=== PATIENT | female | born 1980 | race Caucasian/White ===

== ENCOUNTER 2017-01-05 11:05 | Emergency (ER) | payer OTHER ==
--- NOTE | 2017-01-05 12:38 | XR ---
EXAMINATION TYPE: XR tibia fibula RT DATE OF EXAM: 01/05/2017 CLINICAL HISTORY: Pain. TECHNIQUE: Two views of the right leg are obtained. COMPARISON: None. FINDINGS: Frontal view is suboptimal as is more in oblique projection distally. There is no acute fr acture or dislocation seen in the right tibia or fibula. The right knee joint appears within normal limits. Right ankle joint is suboptimal in evaluation. Mild subcutaneous edema is seen most pronounce d distally. IMPRESSION: There is no acute fracture or dislocation seen in the right tibia or fibula.
--- NOTE | 2017-01-05 12:44 | XR ---
Right foot HISTORY: Pain 3 views of the right foot Bone mineralization and joint spaces are maintained. There is no fracture or dislocation. Soft tissue swelling is noted. Suspect the patient may be rotated. Difficult to exclude malalignment. IMPRESSION: Soft tissue swelling, additional findings above. Follow-up as indicated.
--- NOTE | 2017-01-05 13:20 | ED ---
General Adult HPI - General Chief complaint: Extremity Injury, Lower Stated complaint: RT FOOT SWELLING, Hx Dx CELLULITIS Time Seen by Provider: 01/05/17 11:51 Source: patient Mode of arrival: ambulatory Limitations: altered mental status, physical limitation - History of Present Illness Initial comments: This 36-year-old white female presents with mother with the complaint of swelling to the right lower extremity. She apparently was diagnosed with cellulitis approximately 8 days ago. She had increased redness at that time. She was placed on Bactrim but apparently developed a rash and stopped this after 2 days. She's been on clindamycin for the past 4 days or so. The mother relates that it causes her a fair amount of nausea. An antiemetic apparently was prescribed but she still is had decreased intake with this medication. Mother is requesting a change in antibiotics. The redness has significantly resolved. There is no history of injuries. No other complaints or modifying factors. No fevers or chills. - Related Data Home Medications Medication Instructions Recorded Confirmed Cetirizine HCl [Cetirizine HCl] 10 mg PO QAM PRN 01/05/17 01/05/17 Clindamycin HCl 300 mg PO Q12HR 01/05/17 01/05/17 FLUoxetine HCL [PROzac] 20 mg PO DAILY 01/05/17 01/05/17 Fluticasone Nasal [place] [Flonase 2 spr EA NOSTRIL DAILY 01/05/17 01/05/17 Nasal [place]] Imipramine [Tofranil] 10 mg PO HS 01/05/17 01/05/17 Metoprolol Succinate (ER) [Toprol 50 mg PO QAM 01/05/17 01/05/17 XL] Nitrofurantoin Macrocrystal 100 mg PO BID 01/05/17 01/05/17 [Macrodantin] Ondansetron HCl [Ondansetron HCl] 8 mg PO Q8H PRN 01/05/17 01/05/17 Oxybutynin Chloride [Ditropan] 5 mg PO QID 01/05/17 01/05/17 Verapamil HCl [Verapamil ER] 120 mg PO QAM 01/05/17 01/05/17 Previous Rx's Medication Instructions Recorded Doxycycline Hyclate [Vibramycin] 100 mg PO BID #10 cap 01/05/17 Allergies Allergy/AdvReac Type Severity Reaction Status Date / Time clindamycin Allergy Rash/Hives Verified 01/05/17 12:09 Latex, Natural Rubber Allergy Itching Verified 01/05/17 12:09 Review of Systems ROS Statement: Those systems with pertinent positive or pertinent negative responses have been documented in the HPI. ROS Other: All systems not noted in ROS Statement are negative. Past Medical History Past Medical History: Renal Disease Additional Past Medical History / Comment(s): hydrocephalis, enlarged bladder, spinabifida, constipation, kidney stones History of Any Multi-Drug Resistant Organisms: None Reported Past Surgical History: Adenoidectomy, Hernia Repair, Tonsillectomy Additional Past Surgical History / Comment(s): bilateral ankle, foot, bilateral eyes Past Psychological History: Depression Smoking Status: Never smoker Past Alcohol Use History: None Reported Past Drug Use History: None Reported General Exam - General Exam Comments Initial Comments: GENERAL: The patient is well nourished and well hydrated. VITAL SIGNS: Heart rate, blood pressure, respiratory rate reviewed as recorded in nurse's notes. EYES: Pupils are round and reactive. Extraocular movements are intact. No conjunctival / lid redness or swelling. ENT: No external evidence of injury, swelling, or ecchymosis. Airway is patent. Throat is clear. NECK: Nontender. No swelling or evidence of injury. No subcutaneous emphysema. Trachea is midline. No thyroid mass. HEART: Regular rate and rhythm. Good peripheral pulses. LUNGS/CHEST: Breath sounds clear and equal bilaterally. No rales, rhonchi, or wheezes. No ecchymosis, subcutaneous emphysema, or tenderness. ABDOMEN: Abdomen soft without tenderness. No palpable masses or organomegaly. No peritoneal signs. No abdominal wall swelling or ecchymosis. EXTREMITIES: No extremity tenderness. There may be some scant tenderness noted to the lateral aspect of the right foot. NEUROLOGIC: Patient has decreased sensation to lower extremities consistent with chronic disease. Cranial nerve exam reveals face is symmetrical, tongue is midline, speech is clear. SKIN: No abrasions or ecchymosis is noted. No induration or masses noted. No associated erythema her current evidence of cellulitis. There is some ecchymosis to the toes which apparently is chronic for her. PSYCHIATRIC: Alert and in no distress. Limitations: altered mental status, physical limitation Course Vital Signs 01/05/17 11:13 Temperature 98.7 F Pulse Rate 94 Respiratory 18 Rate Blood Pressure 143/95 O2 Sat by Pulse 98 Oximetry Medical Decision Making - Medical Decision Making The patient was seen and examined. An x-ray was taken of the right foot and the right tibia and fibula no fracture is identified per radiology. Mother is requesting a change in antibiotic due to the side effects of the clindamycin. She will be switched to doxycycline. It appears that the cellulitis is healing well. The mild swelling may be sequelae related to resolving cellulitis. It is felt as though she is stable for discharge and leaves no distress. Disposition Clinical Impression: Foot swelling Disposition: HOME SELF-CARE Condition: Good Instructions: Cellulitis (ED) Additional Instructions: Please stop the clindamycin. Prescriptions: Doxycycline Hyclate [Vibramycin] 100 mg PO BID #10 cap Referrals: Nelson Whiteside MD [Primary Care Provider] - 01/09/17 Time of Disposition: 13:19
[2017-01-05 13:29] VITALS: BP 142/76; PULSE 88; RESP 16; TEMP 98.4
== END 2017-01-05 13:29 | disposition home or self-care (01) ==
LOC: EC 11:05
DX: M79.89 Other specified soft tissue disorders (principal); R58 Hemorrhage, not elsewhere classified; R41.82 Altered mental status, unspecified; F32.9 Major depressive disorder, single episode, unspecified; Z79.51 Long term (current) use of inhaled steroids; Z79.899 Other long term (current) drug therapy; Z88.1 Allergy status to other antibiotic agents; Z91.040 Latex allergy status; Z98.890 Other specified postprocedural states
CPT/HCPCS: 99283

== ENCOUNTER → 2019-06-15 | Outpatient (CLI) | payer OTHER ==
--- NOTE | 2019-06-16 22:02 | CT ---
EXAMINATION TYPE: CT abdomen pelvis wo con DATE OF EXAM: 06/15/2019 COMPARISON: 06/07/2018 HISTORY: 39-year-old female History of stones. Left renal stone. CT DLP: 647.3 mGycm. Automated exposure control for dose reduction was used. TECHNIQUE: Contiguous axial scanning of the abdomen and pelvis without IV contrast. Coronal and sagit tania reconstructions performed. FINDINGS: Heart normal size without pericardial effusion. Volume loss and atelectasis at the left base secondary to a large hiatal hernia containing two thirds of the stomach in the left lower chest. The hernia also contains the distal third transverse colon a nd splenic flexure. The colon is pinched off as it enters and leaves the hernia. Colon within the her ema sac is distended up to 6.7 cm wide and right side of the colon proximal to the hernia is distende d up to 9.1 cm with large stool burden. Dual DELINEATOR shunt catheters are present entering the pelvis. No dilated small bowel, free fluid, or free air. No mesenteric or retroperitoneal lymphadenopathy. Noncontrast appearance of the liver, adrenal glands, right kidney, spleen, and pancreas show no gross abnormality by noncontrast CT. Multiple 5 mm nonobstructive calculi are present in the left kidney. There is prominent lobulation al ekaterina the lower pole of the left kidney, referred to coronal image 66. The lobulation measures 3.2 cm a nd is stable from 06/07/2018 compatible with a lobulation rather than mass. Bladder is distended and has a prominent urachal remnant which seems to be characterized by a sinus t ract extending to the umbilicus. Air tracks along the sinus tract and at the anterior dome of the enrrique dder. In addition, there is a prominent 7.2 cm craniocaudal by 3.8 cm wide by 4.2 cm AP diverticulum along the left bladder dome, refer to coronal image 53 and axial image 114. Uterus anteverted. Neither ovary clearly delineated from adjacent bowel loops. Bilateral hip dysplasia and marked S-shaped scoliotic curvature. IMPRESSION: 1. Large hiatal hernia containing two thirds of the stomach and also the distal third transverse col on and splenic flexure. The colon appears pinched off as it enters and leaves the hernia sac and colo n proximally is distended up to 9.1 cm with a large amount of stool. A relative partial colonic obstr uction is not excluded. 2. Distended bladder with what appears to be a urachal remnant characterized by a sinus tract extend ing to the umbilicus. Air along the sinus tract and within the bladder lumen. 3. Additional 7.2 x 4.2 cm bladder wall diverticulum along the left bladder dome also contains some air. 4. A couple 5 mm nonobstructive left renal calculi. 5. S-shaped scoliosis, bilateral dysplastic hips, and double DELINEATOR shunt catheters entering the pelvis.
== END | disposition home or self-care (01) ==
LOC: RADCTMAIN 12:51
PROVIDERS: ATTEND Physician Assistant Medical
DX: N20.0 Calculus of kidney (principal); K44.9 Diaphragmatic hernia without obstruction or gangrene
CPT/HCPCS: 74176

== ENCOUNTER → 2022-03-23 | Outpatient (CLI) | payer MEDICARE, OTHER ==
[2022-03-23 15:15] LABS: Basophils # (A) 0.04 X 10*3/uL (0.00-0.10); Basophils % (A) 0.7 %; Eosinophils # (A) 0.26 X 10*3/uL (0.04-0.35); Eosinophils % (A) 4.7 %; HCT 43.4 % (37.2-46.3); HGB 13.7 g/dL (12.0-15.0); Immature Grans, Automated 0.4 %; Lymphocytes % (A) 21.7 %; MCH 29.5 pg (27.0-32.0); MCHC 31.6 g/dL (32.0-37.0); MCV 93.3 fL (80.0-97.0); Mean Platelet Volume 10.2 fL (9.5-12.2); Monocytes # (A) 0.32 X 10*3/uL (0.20-1.00); Monocytes % (A) 5.8 %; NRBC Per 100 WBC 0 /100 WBCS (0.0-0.0); Neutrophils # (A) 3.68 X 10*3/uL (1.80-7.70); Neutrophils % (A) 66.7 %; Platelet Count 371 X 10*3/uL (140-440); RBC 4.65 X 10*6/uL (4.10-5.20); RDW 13.6 % (11.5-14.5); WBC 5.52 X 10*3/uL (4.50-10.00)
[2022-03-23 16:04] LABS: ALT 16 U/L (8-44); AST 20 U/L (13-35); African American GFR (CKD) 129.4 (60.0-200.0); Albumin 4.2 g/dL (3.8-4.9); Albumin/Globulin Ratio 1.45 (1.60-3.17); Alkaline Phosphatase 117 U/L (41-126); Blood Urea Nitrogen 18.9 mg/dL (9.0-27.0); Calcium 9.3 mg/dL (8.7-10.3); Carbon Dioxide 19.8 mmol/L (20.0-27.5); Chloride 108 mmol/L (96-109); Chol/HDL Ratio 4.78 Ratio; Globulin 2.9 g/dL (1.6-3.3); Glucose 78 mg/dL (70-110); LDL Cholesterol,Calculated 185.1 mg/dL (0.0-131.0); Non-African American GFR(CKD) 111.6 (60.0-200.0); Sodium 137 mmol/L (135-145); Total Protein 7.1 g/dL (6.2-8.2); VLDL Calculation 19.66 mg/dL (5.00-40.00)
== END | disposition home or self-care (01) ==
LOC: LABWHC1 10:28
PROVIDERS: ATTEND Pediatrics
DX: Z13.29 Encounter for screening for other suspected endocrine disorder (principal); I10 Essential (primary) hypertension; E23.0 Hypopituitarism; L65.9 Nonscarring hair loss, unspecified
CPT/HCPCS: 36415; 80053; 80061; 84443; 85025

== ENCOUNTER → 2024-10-31 | Outpatient (CLI) | payer MEDICARE, OTHER ==
--- NOTE | 2024-10-31 13:59 | CT ---
EXAMINATION TYPE: CT abdomen pelvis wo con DATE OF EXAM: 10/31/2024 COMPARISON: Prior CT 2019 CLINICAL INDICATION: Female, 44 years old with history of N20.0 calculus, RENAL CALCULUS, TECHNIQUE: CT scan of the abdomen and pelvis is performed without contrast, patient injected with mL of ., (none if empty) Oral contrast used: without Oral Contrast (none if empty) CT DLP: 762 mGycm, Automated exposure control for dose reduction was used. FINDINGS: Within the limitations of noncontrast, following observations are made LUNG BASES: Posterior left-sided diaphragmatic hernia redemonstrated containing a significant portion of stomach and several colonic loops. There is transition from fecal prominent transverse colon is n ondistended left colon near the level of the normal diaphragms. LIVER/GB: No significant abnormality is appreciated. PANCREAS: No significant abnormality is seen. SPLEEN: No significant abnormality is seen. ADRENALS: No significant abnormality is seen. KIDNEYS: No right-sided renal calculi or hydronephrosis. There is left-sided nephrolithiasis redemons trated including dominant 11 mm calculus in the left renal pelvis coronal image 75. No hydroureter or obstructing ureteral calculus Nondependent air in bladder suggests recent Singleton catheterization. Cor relate clinically. BOWEL: Moderate to severe colonic fecal prominence in the transverse colon. Mild to moderate thecal p rominence in the right colon. No abnormal small or large bowel dilatation. UTERUS/ADNEXA: No gross abnormality seen. LYMPH NODES: No greater than 1cm abdominal or pelvic lymph nodes are appreciated. OSSEOUS STRUCTURES: S-shaped scoliosis is redemonstrated. Spina bifida defect in the lower lumbar spi ne is redemonstrated OTHER: There is anterior right-sided DIRECTOR OF PSYCHIATRY shunt catheter redemonstrated. IMPRESSION: 1. There is 11 mm calculus in the left renal pelvis. No hydronephrosis seen bilaterally. 2. There is moderate to severe mid colonic fecal prominence or constipation. There is abrupt bowel ca liber change at the site of diaphragmatic hernia suggesting possible partial colonic obstruction at t his level. [facility], , 10/31/2024 1:56 PM
== END | disposition home or self-care (01) ==
LOC: RADCTMAIN 10:03
PROVIDERS: ATTEND Urology
DX: N20.0 Calculus of kidney (principal); K44.9 Diaphragmatic hernia without obstruction or gangrene
CPT/HCPCS: 74176

== ENCOUNTER → 2024-11-11 | Outpatient (CLI) | payer MEDICARE, OTHER ==
[2024-11-11 15:36] LABS: Basophils # (A) 0.08 X 10*3/uL (0.00-0.10); Basophils % (A) 1.4 %; Eosinophils # (A) 0.23 X 10*3/uL (0.04-0.35); Eosinophils % (A) 4.1 %; HCT 41.9 % (37.2-46.3); HGB 13.1 g/dL (12.0-15.0); Lymphocytes # (A) 1.25 X 10*3/uL (0.90-5.00); Lymphocytes % (A) 22.2 %; MCH 29.3 pg (27.0-32.0); MCHC 31.3 g/dL (32.0-37.0); MCV 93.7 FL (80.0-97.0); Mean Platelet Volume 10.1 FL (9.5-12.2); Monocytes % (A) 7.1 %; NRBC Per 100 WBC 0 X 10*3/uL (0.00-0.01); Neutrophils # (A) 3.64 X 10*3/uL (1.80-7.70); Neutrophils % (A) 64.8 %; Platelet Count 323 X 10*3/uL (140-440); RBC 4.47 X 10*6/uL (4.10-5.20); RDW 13.3 % (11.5-14.5); WBC 5.62 X 10*3/uL (4.50-10.00)
[2024-11-11 16:07] LABS: Calcium 9.1 mg/dL (8.7-10.3); Carbon Dioxide 20.2 mmol/L (21.6-31.8); Chloride 107 mmol/L (96-109); Glucose 87 mg/dL (70-110); Potassium 4.9 mmol/L (3.5-5.5); Sodium 135 mmol/L (135-145)
== END | disposition home or self-care (01) ==
LOC: LABPAT 10:14
PROVIDERS: ATTEND Urology
DX: Z01.812 Encounter for preprocedural laboratory examination (principal); N20.0 Calculus of kidney; R33.9 Retention of urine, unspecified
CPT/HCPCS: 80048; 85025

== ENCOUNTER 2024-11-19 11:02 | Day surgery (SDC) | payer MEDICARE, OTHER ==
[2024-11-14 14:41] VITALS: BMI 34.2
--- NOTE | 2024-11-19 08:42 | P.HPIHPCON ---
History of Present Illness H&P Date: 11/19/24 Chief Complaint: Left renal stone, stenosis of the Mitrofanoff This is a 44-year-old female history of spina bifida, neurogenic bladder previously managed with a Mitrofanoff and catheterization through Mitrofanoff, recently this has stenosed off and at this time she is catheterizing per urethra. Also has history of recurrent UTIs had a CT abdomen pelvis that showed evidence of a 1.1 cm left-sided renal pelvic stone. Discussed given the recurrent UTIs and the location of the stone I do recommend proceeding with removal. Discussed the option of left-sided ureteroscopy with holmium laser. She is aware of the risk which include but not limited to bleeding, infection, injury to the ureter. Patient mother would like the patient to continue to catheterize again through the Mitrofanoff if possible. Discussed we will evaluate this in the OR and attempt dilation. But did discuss with her she may require a referral to [facility] for revision Consent for Procedure: I have explained the operation/procedure to the patient, including the risks, benefits, side effects, alternative therapies (including not receiving the proposed treatment or service), the likelihood of the patient achieving his/her goals, and potential recuperation problems for the procedure/sedation/analgesia, as well as any blood products, if indicated. I also explained to the patient the risks, benefits and side effects of the alternatives, as well as the risks related to not receiving the proposed procedure, care, treatment, or services. Past Medical History Past Medical History: Hearing Disorder / Deafness, Hypertension Additional Past Medical History / Comment(s): Hydrocephalus, enlarged bladder, spina bifida, scoliosis, wheelchair bound, can self transfer depending on height of bed, if too high will need physical assistance, poor circulation in feet, constipation, hx of and current kidney stones, hearing aid use. History of Any Multi-Drug Resistant Organisms: None Reported Past Surgical History: Adenoidectomy, Hernia Repair, Tonsillectomy Additional Past Surgical History / Comment(s): Bilateral ankle, foot, bilateral eyes, multiple preocedures for kidney stones. Past Anesthesia/Blood Transfusion Reactions: No Reported Reaction Additional Past Anesthesia/Blood Transfusion Reaction / Comment(s): No hx blood transfusion. Smoking Status: Never smoker - Past Family History Father Family Medical History: No Reported History Medications and Allergies Home Medications Medication Instructions Recorded Confirmed Type FLUoxetine HCL [PROzac] 20 mg PO QAM 01/05/17 11/14/24 History Imipramine [Tofranil] 10 mg PO HS 01/05/17 11/14/24 History Metoprolol Succinate (ER) [Toprol 50 mg PO QAM 01/05/17 11/14/24 History XL] Verapamil HCl [Verapamil ER] 120 mg PO QAM 01/05/17 11/14/24 History oxyBUTYnin chloride [Ditropan] 10 mg PO BID 01/05/17 11/14/24 History Cetirizine HCl [Zyrtec] 10 mg PO DAILY 11/14/24 11/14/24 History Ferrous Sulfate [Feosol] 325 mg PO DAILY 11/14/24 11/14/24 History Multivitamins, Thera [Multivitamin 1 tab PO DAILY 11/14/24 11/14/24 History (formulary)] Trimethoprim 100 mg PO DAILY 11/14/24 11/14/24 History Allergies Allergy/AdvReac Type Severity Reaction Status Date / Time clindamycin Allergy Rash/Hives Verified 11/14/24 14:08 Latex, Natural Rubber Allergy Itching Verified 11/14/24 14:08 Surgical - Exam - General no distress, no pain - Eyes normal ocular movement, no pale - ENT normal nares, normal mucosa - Respiratory normal expansion, normal respiratory effort - Abdomen Abdomen: soft, non tender, no distended Assessment and Plan Assessment: OR for cystoscopy, left ureteroscopy, laser lithotripsy, stone basketing and stent insertion, possible dilation of Mitrofanoff
[~2024-11-19 11:02] MED LIST: GENTAMICIN 120 MG in SODIUM CHLORIDE 0.9% 100 ML IVPB PRN; HYDROmorphone 0.5 MG/0.5 ML SYRINGE IVP PRN; LIDOCAINE 1% (10MG/ML) FOR IV START INTRADERMA PRN; MIDAZOLAM 2 MG/2 ML VIAL IV PRN; fentaNYL (PF) 50 MCG/ML 2 ML AMP IVP PRN
[2024-11-19] MEDS: LACTATED RINGERS 1,000 ML IV SCH (12:08)
[2024-11-19] MEDS: IV FLUID CONTINUATION 1,000 ML IV ONE (12:10)
[2024-11-19] MEDS: DEXAMETHASONE SOD PHOSPHATE 4 MG/ML 1 ML VIAL IV ONE (12:19)
[2024-11-19] MEDS: ONDANSETRON 4 MG/2 ML VIAL IVP ONE (12:19)
[2024-11-19] MEDS ORDERED: fentaNYL (PF) 50 MCG/ML 2 ML AMP ONE (12:35)
[2024-11-19] MEDS ORDERED: LIDOCAINE 1% INJ 10MG/ML (20 ML MDV) ONE (12:35)
[2024-11-19] MEDS ORDERED: PROPOFOL 10 MG/ML 20 ML VIAL IV ONE (12:35)
[2024-11-19] MEDS: ceFAZolin 2 GM in DEXTROSE 5% IN WATER 50 ML IVPB PRN (12:40)
[2024-11-19] MEDS: IOPAMIDOL-370 100ML BTL MISCELLANE ONE (13:15)
--- NOTE | 2024-11-19 14:22 | FL ---
Fluoroscopy History: Cysto for left kidney stone FL 30.8 DAP [id number] CYSTO LEFT KIDNEY STONE [facility], , 11/19/2024 2:20 PM
[2024-11-19 14:23] VITALS: TEMP 97
--- NOTE | 2024-11-19 14:37 | P.OP ---
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 Postoperative Diagnosis: Same Procedure(s) Performed: Cystoscopy, attempted dilation of a Mitrofanoff, left ureteroscopy, ureteral balloon dilation, holmium laser lithotripsy, stone basketing and stent insertion Implants: 6 Austrian by 22 cm stents in the left ureter left on a string and taped to the catheter Anesthesia: ALDO Surgeon: Celso Shukla Estimated Blood Loss (ml): 5 Pathology: other (left renal stone) Condition: stable Disposition: PACU Indications for Procedure: This is a 44-year-old female history of spina bifida, neurogenic bladder previously managed with a Mitrofanoff and catheterization through Mitrofanoff, recently this has stenosed off and at this time she is catheterizing per urethra. Also has history of recurrent UTIs had a CT abdomen pelvis that showed evidence of a 1.1 cm left-sided renal pelvic stone. Discussed given the recurrent UTIs and the location of the stone I do recommend proceeding with removal. Discussed the option of left-sided ureteroscopy with holmium laser. She is aware of the risk which include but not limited to bleeding, infection, injury to the ureter. Patient mother would like the patient to continue to catheterize again through the Mitrofanoff if possible. Discussed we will evaluate this in the OR and attempt dilation. But did discuss with her she may require a referral to [facility] for revision Operative Findings: Complete stenosis of the left Mitrofanoff large left-sided renal pelvic stone successfully fragmented Description of Procedure: Patient brought to the operating room, general anesthesia was induced. She was prepped and draped in sterile fashion placed in a dorsolithotomy position. Cystoscopy fitted through the 21 Austrian sheath was inserted per urethra, cystoscopy was performed showed no abnormality within the bladder, on evaluation of the dome it was consistent with a previous bladder augmentation, multiple attempts were made to identify the location of the Mitrofanoff but was unable to, at this point attempts were also made of identifying the opening along the Mitrofanoff using a 0.025 Glidewire and a 0.035 sensor wire but I was unable to advance the wire. At this time attention was carried to the stone, the cystoscope was reinserted per urethra and the left ureteral orifice was identified and intubated with a sensor wire. The wire was advanced under fluoroscopy into the kidney. Next an 1113 Austrian access sheath was passed over the wire and into the proximal ureter. The flexible ureteroscope was inserted through the access sheath, at this point a narrowing was encountered in the proximal ureter just distal to the UPJ. At this time the wire was readvanced through the scope and the scope was removed with the wire in place. Next a balloon dilator was passed over the wire, and a narrowed area was dilated to 15 Austrian under fluoroscopy using the ureteral balloon dilator. At this time the balloon dilator was removed, the ureteroscope was reinserted to the access sheath, renoscopy was performed showed a large stone in the renal pelvis. Using the holmium laser the stone was dusted, sizable fragments were removed using the stone basket. Repeat renoscopy showed no injury to the kidney or any sizable fragments. The kidney was slightly malrotated, it difficult to evaluate the lower pole given the anatomy, but on fluoroscopy there was no radiopaque density seen. Pullback ureteroscopy was performed showed no injury to the ureter or ureter or any ureteral stones, as ureteroscope was withdrawn a sensor wire was advanced through. Next a ureteral stent was passed over the wire, the proximal curl was realized on fluoroscopy and the distal curl was visualized using cystoscope. The stent was left on a string and at this time a 16 Austrian Singleton catheter was placed with return of clear urine. The string was taped to the catheter. Patient was awakened from anesthesia and taken recovery in stable condition
[2024-11-19 15:12] VITALS: BP 139/89; PULSE 84; RESP 18
== END 2024-11-19 15:40 | disposition home or self-care (01) ==
LOC: EEVIPCON 11:02 → OR 11:02
PROVIDERS: ATTEND Urology
DX: N99.524 Stenosis of incontinent stoma of urinary tract (principal); N20.0 Calculus of kidney; Q63.2 Ectopic kidney; I10 Essential (primary) hypertension; Q05.9 Spina bifida, unspecified; N31.9 Neuromuscular dysfunction of bladder, unspecified; R33.9 Retention of urine, unspecified; Z79.899 Other long term (current) drug therapy; Z87.440 Personal history of urinary (tract) infections; Z87.442 Personal history of urinary calculi; Z99.3 Dependence on wheelchair; Z88.1 Allergy status to other antibiotic agents; Z91.040 Latex allergy status; Z91.048 Other nonmedicinal substance allergy status
CPT/HCPCS: 52344; 52356; 84703; 82365; J1100; J0690; J2405; Q9967